=== PATIENT | female | born 1975 | race Two or more races ===

== ENCOUNTER 2024-09-24 20:49 | Emergency (ER) | payer OTHER, SELFPAY ==
[2024-09-24 20:50] VITALS: BMI 34.1
[2024-09-24 20:56] VITALS: BP 172/94; PULSE 83; RESP 20; TEMP 37.1; O2SAT 95
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
--- NOTE | 2024-09-24 21:02 | XR_ITS ---
Examination: Shoulder,right, 3 views Technique: Shoulder AP internal rotation, AP external rotation, Y view shoulder, 3 views Exam date and time :September 24, 2024, 2105 hours INDICATIONS: Right shoulder pain today FINDINGS: Moderate osteoarthritis glenohumeral joint No shoulder fracture or dislocation Mild osteoarthritis of acromioclavicular joint No calcific tendinitis IMPRESSION: Moderate osteoarthritis glenohumeral joint
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
[2024-09-24] MEDS: HYDROcodone/APAP 5/325 TABLET 1 TAB PO (23:40)
== END 2024-09-25 00:08 | disposition home or self-care (01) ==
PROVIDERS: Emergency Provider Emergency Medicine
DX: S13.4XXA Sprain of ligaments of cervical spine, initial encounter (principal); S43.401A Unspecified sprain of right shoulder joint, initial encounter; M19.011 Primary osteoarthritis, right shoulder; V49.40XA Driver injured in collision with unspecified motor vehicles in traffic accident, initial encounter
CPT/HCPCS: 72125; 73030; 99284; A9270